=== PATIENT | male | born 1945 | race Caucasian/White ===

== ENCOUNTER 2016-03-12 07:38 | Day surgery (SDC) | payer OTHER, BC ==
[~2016-03-12] VITALS: Ht 170.2 cm; Wt 72.5 kg
[~2016-03-12 07:38] MED LIST: LISINOPRIL5 MG PO
[2016-03-12 08:16] VITALS: BP 134/78
[2016-03-12 11:35] VITALS: BP 169/68
[2016-03-12 12:15] VITALS: BP 144/70
== END 2016-03-12 12:20 | disposition home or self-care (01) ==
LOC: SDC 07:38
DX: H33.021 Retinal detachment with multiple breaks, right eye (principal); H40.9 Unspecified glaucoma
CPT/HCPCS: J0690; J1100; J2405; J3010